=== PATIENT | male | born 1940 | race Caucasian/White ===

== ENCOUNTER 2016-12-30 12:56 | Emergency (ER) | payer MEDICARE, OTHER ==
[~2016-12-30] VITALS: Ht 170.2 cm; Wt 100.2 kg
[~2016-12-30 12:56] MED LIST: ALFU10TA PO; ASPI81TA2 PO; CHOL10003 PO; CYAN10005 PO; DIPH25CA58 PO; DOCU-27 PO; LISI-338 PO; METO25TA2 PO; PRAV40TA2 PO
--- NOTE | 2016-12-30 13:48 | ED.ADGEN ---
Past History Past Medical History: Constipation, Diverticulitis, Diabetes, High Cholesterol , Hypertension, IBS, Other Past Surgical History: Appendectomy, Tonsillectomy, Other Alcohol Use: Occasionally Drug Use: None Adult General HPI HPI Patient is a 76-year-old male presents complaining of intermittent mid abdominal pain and distention for the last day and half. Patient reports that he had constipation 3 days ago and was taking MiraLAX. Yesterday he did have good results and again this morning had normal bowel movements. However starting last night he notes that he was quite a bit distended and uncomfortable depending on his physician. Patient denies any fevers, chills, nausea, vomiting. But does report that he had decreased appetite. Belching does seem to help with his symptoms and he reports that despite passing minimal flatus he has had 2 normal bowel movements today. Review of Systems Review of Systems Constitutional: Denies fever or chills [] Eyes: Denies change in visual acuity, redness, or eye pain [] HENT: Denies nasal congestion or sore throat [] Respiratory: Denies cough or shortness of breath [] Cardiovascular: No additional information not addressed in HPI [] GI: Denies abdominal pain, nausea, vomiting, bloody stools or diarrhea [] : Denies dysuria or hematuria [] Musculoskeletal: Denies back pain or joint pain [] Integument: Denies rash or skin lesions [] Neurologic: Denies headache, focal weakness or sensory changes [] Endocrine: Denies polyuria or polydipsia [] Allergies Allergies Allergies Coded Allergies Type Severity Reaction Last Updated Verified simvastatin Allergy Severe cramps 11/09/15 Yes Physical Exam Physical Exam Constitutional: Well developed, well nourished, no acute distress, non-toxic appearance. [] HENT: Normocephalic, atraumatic, bilateral external ears normal, oropharynx moist, no oral exudates, nose normal. [] Eyes: PERRLA, EOMI, conjunctiva normal, no discharge. [] Neck: Normal range of motion, no tenderness, supple, no stridor. [] Cardiovascular:Heart rate regular rhythm, no murmur [] Lungs & Thorax: Bilateral breath sounds clear to auscultation [] Abdomen: Bowel sounds normal, soft, diffusely tender to palpation with distention but no peritoneal signs, no masses, no pulsatile masses. [] Skin: Warm, dry, no erythema, no rash. [] Back: No tenderness, no CVA tenderness. [] Extremities: No tenderness, no cyanosis, no clubbing, ROM intact, no edema. [] Neurologic: Alert and oriented X 3, normal motor function, normal sensory function, no focal deficits noted. [] Psychologic: Affect normal, judgement normal, mood normal. [] Current Patient Data Vital Signs Vital Signs Date Time Temp Pulse Resp B/P Pulse Ox O2 Delivery O2 Flow Rate FiO2 12/30/16 13:05 98.3 80 15 99 Room Air EKG EKG [] Radiology/Procedures Radiology/Procedures Indication: Pelvic pain, bloating. Symptoms since the . Symptoms progressing. Technique: Abdominal series with PA chest radiograph contains 4 images. Comparison is from November 10, 2015. Findings: Minimal basilar atelectasis or scarring is noted. There is no pleural effusion. Heart is not enlarged. There is atheromatous disease in the thoracic aorta. There is no free air. There is no dilated bowel loop or air-fluid level. There are calcified phleboliths in the pelvis. There are degenerative changes in the spine. Calculus projecting over the left renal shadow measures 3 mm. Impression: 1. Nonobstructive bowel gas pattern. 2. 3 mm calculus projecting over the left renal shadow, was present on prior. DICTATED AND SIGNED BY: FRANCIS ANN MD DATE: 12/30/16 1410 CC: LISA DENNIS MD; BERONICA HIGHTOWER MD ~ [] Course & Med Decision Making Course & Med Decision Making Pertinent Labs and Imaging studies reviewed. (See chart for details) Overall, the patient looks well. His x-ray is reassuring however he does still have a fair amount of stool present in his colon. Patient tells me that he has not had the same resolution of his constipation as he usually does following administration of MiraLAX. At this point he like to return home and try another dose of that. He will of course return emergency Department sooner if he develops any new or worsening symptoms. [] Final Impression Final Impression abdominal pain constipation[] Problems: Dragon Disclaimer Dragon Disclaimer This electronic medical record was generated, in whole or in part, using a voice recognition dictation system. LISA DENNIS MD Dec 30, 2016 13:48
--- NOTE | 2016-12-30 14:16 | RAD ---
Indication: Pelvic pain, bloating. Symptoms since the . Symptoms progressing. Technique: Abdominal series with PA chest radiograph contains 4 images. Comparison is from November 10, 2015. Findings: Minimal basilar atelectasis or scarring is noted. There is no pleural effusion. Heart is not enlarged. There is atheromatous disease in the thoracic aorta. There is no free air. There is no dilated bowel loop or air-fluid level. There are calcified phleboliths in the pelvis. There are degenerative changes in the spine. Calculus projecting over the left renal shadow measures 3 mm. Impression: 1. Nonobstructive bowel gas pattern. 2. 3 mm calculus projecting over the left renal shadow, was present on prior.
[2016-12-30 14:25] VITALS: BP 109/63
== END 2016-12-30 14:43 | disposition home or self-care (01) ==
LOC: ER 12:56
DX: K59.00 Constipation, unspecified (principal); R14.0 Abdominal distension (gaseous); I10 Essential (primary) hypertension; E78.00 Pure hypercholesterolemia, unspecified; E11.9 Type 2 diabetes mellitus without complications; K58.9 Irritable bowel syndrome, unspecified; Z88.8 Allergy status to other drugs, medicaments and biological substances
CPT/HCPCS: 74022; 99284

== ENCOUNTER 2017-01-01 03:14 | Inpatient (IN) | payer MEDICARE, OTHER ==
[~2017-01-01] VITALS: Ht 170.2 cm; Wt 101.3 kg
[2017-01-01] MEDS ORDERED: FENTANYL PF 100 MCG/2 ML VIAL. IV PRN (03:30)
--- NOTE | 2017-01-01 03:39 | PHYS DOC ---
General Chief Complaint: ABDOMINAL PAIN Stated Complaint: ABDOMINAL PAIN X 1 WK Time Seen by MD: 03:16 Source: patient, old records Exam Limitations: no limitations Problems: History of Present Illness Initial Comments Pt is 76/M to ED c/o abdominal pain. Pt states abdominal pain for at least one week. Pt was seen [facility] ED Thursday for similar sx, at that time reassuring workup pt was d/c home with miralax. Pt states he's only taken clear liquids since then, states he's had seven normal BMs feels there could be nothing left. States that his abdomen has grown distended and is painful primarily epigastric. Today with increased abdominal distension pt began belching and felt nauseous, pt concerned he may have obstruction recurrance. ED VS: 97.7, 95, 20, 156/88, 96% RA Timing/Duration: 1 week, getting worse Severity: severe Modifying Factors: worse with eating, worse with movement, improves with rest Associated Symptoms: nausea/vomiting, other Allergies: Coded Allergies: simvastatin (Verified Allergy, Severe, cramps, 11/09/15) muscle loss Past Medical History Medical History: other (constipation, diverticulitis, DM, HLP, HTN, IBS, small bowel obstruction) Surgical History: other (appendectomy, tonsillectomy, 5 abdominal hernia repairs mesh) Social History Smoker: non-smoker Alcohol: occasionally Drugs: none Review of Systems Constitutional: denies chills, denies fever Respiratory: denies cough, denies shortness of breath Cardiovascular: denies chest pain, denies palpitations Gastrointestinal: see HPI Genitourinary: denies dysuria, denies frequency, denies hematuria Musculoskeletal: denies back pain, denies joint swelling, denies neck pain Psychiatric/Neurological: denies headache, denies numbness, denies paresthesia Hematologic/Lymphatic: denies blood clots, denies easy bleeding, denies easy bruising Physical Exam General Appearance: WD/WN, no apparent distress Eyes: bilateral eye EOMI, bilateral eye PERRL, bilateral eye normal inspection Ear, Nose, Throat: hearing grossly normal, normal ENT inspection, normal pharynx Neck: non-tender, supple Respiratory: normal breath sounds, no respiratory distress Cardiovascular: normal peripheral pulses, regular rate, rhythm Gastrointestinal: soft (distended, generalized TTP with guarding no rebound/ mass, scars noted c/w history) Back: no CVA tenderness, no vertebral tenderness Extremities: non-tender, normal inspection 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 REASON: abdominal pain, h/o SBO PROCEDURE: ABD PELV W/ IV CONTRAST ONLY CT abdomen pelvis with contrast Indication: Abdominal pain and flank pain and bloating. Axial imaging through the abdomen and pelvis was performed after the administration of intravenous contrast. PQRS STATEMENT One or more of the following individualized dose reduction techniques were utilized for this study: 1.Automated exposure control. 2.Adjustment of the mA and/orkVaccording to patient size. 3.Use of iterative reconstruction technique. The patient's prior images are not available for comparison. The lung bases are clear. No focal liver mass is detected. The gallbladder is unremarkable. The pancreas and spleen are unremarkable. No adrenal mass is detected. There is a nonobstructing calculus in the mid left kidney. No ureteral calculi or hydronephrosis is seen. Aorta is calcified but not aneurysmal. There are moderately dilated and fluid-filled small bowel loops in the central and left lower abdomen. There appears to be a focal transition zone with normal caliber small bowel loops present and findings are consistent with small bowel obstruction. No bowel wall thickening or pneumatosis is seen. There is no free air. No free fluid is identified. The colon is decompressed. The bladder is unremarkable. Impression: Moderately dilated and fluid-filled small bowel loops in the central and left abdomen with focal transition zone. Findings are consistent with a small bowel obstruction. No free air or abscess formation is identified. Electronically signed by: Remi Peng MD (Jan 01, 2017 04:52:48) DICTATED AND SIGNED BY: REMI PENG MD DATE: 01/01/17 3282 CC: BERONICA HIGHTOWER MD; SIL AYALA DO ~ [id number]: I discussed pt with Dr Hightower who agrees with hospital admission. He accepts medsurg/obs admission for bowel rest, IV fluids, pain control, and surgical consult. Pt is agreeable. Departure Time of Disposition: 05:04 Disposition: 09 ADMITTED INPATIENT Diagnosis: Small Bowel Obstruction Condition: STABLE Additional Instructions: Dr Hightower accepts medsurg/obs admission. SIL AYALA DO Jan 01, 2017 03:39
--- NOTE | 2017-01-01 03:44 | EKG ---
[address] [address] Test Date: 2017-01-01 Test Time: 03:44:10 Pat Name: AALIYAH AMBROCIO Department: Room: Gender: M Babbitter: : 1940 Requested By: SIL AYALA Order Number: [id number] Reading MD: Measurements Intervals [place] Rate: 81 P: 34 OK: 212 QRS: -7 QRSD: 84 T: 12 QT: 352 QTc: 409 Interpretive Statements SINUS RHYTHM LEFTWARD AXIS OTHERWISE NORMAL ECG RI6.01 Unconfirmed report Compared to ECG 07/17/2012 04:11:20 No significant changes
[2017-01-01] MEDS ORDERED: CONTRAST GIVEN MC PRN (03:45)
[2017-01-01] MEDS ORDERED: LIDO:MAALOX 1:1 20 ML SINGLE DOSE PO ONE (04:00)
[2017-01-01] MEDS ORDERED: FAMOTIDINE 20 MG/2 ML VIAL IVP ONE (04:00)
[2017-01-01] MEDS ORDERED: ONDANSETRON PF 4 MG/2 ML VIAL. IV ONE (04:00)
[2017-01-01] MEDS ORDERED: IV NORMAL SALINE 1,000ML 1,000 ML IV SCH (04:00)
[2017-01-01] MEDS ORDERED: IOHEXOL 300 MG/ML 75 ML VIAL. IV ONE (04:00)
[2017-01-01 04:01] LABS: BASO % 1 % (0-3); EOS # 0.1 x10^3/uL (0.0-0.7); EOS % 1 % (0-3); HEMATOCRIT 45.2 % (39.0-53.0); HEMOGLOBIN 15.6 g/dL (13.0-17.5); LYMPH # 1.3 x10^3/uL (1.0-4.8); LYMPH % 14 % (24-48); MEAN CORPUSCULAR HEMOGLOBIN 34 pg (25-35); MEAN CORPUSCULAR HGB CONC 35 g/dL (31-37); MEAN CORPUSCULAR VOLUME 99 fL (79-100); MONO # 0.9 x10^3/uL (0.0-1.1); MONO % 11 % (0-9); NEUT # 6.4 x10^3uL (1.8-7.7); NEUT % 74 % (31-73); PLATELET COUNT 267 x10^3/uL (140-400); RED BLOOD COUNT 4.59 x10^6/uL (4.30-5.70); WHITE BLOOD COUNT 8.7 x10^3/uL (4.0-11.0)
[2017-01-01 04:22] LABS: ALBUMIN 3.5 g/dL (3.4-5.0); CALCIUM 10.1 mg/dL (8.5-10.1); GFR 72.6; TOTAL BILIRUBIN 0.7 mg/dL (0.2-1.0); TOTAL PROTEIN 6.9 g/dL (6.4-8.2)
--- NOTE | 2017-01-01 04:55 | RAD ---
CT abdomen pelvis with contrast Indication: Abdominal pain and flank pain and bloating. Axial imaging through the abdomen and pelvis was performed after the administration of intravenous contrast. PQRS STATEMENT One or more of the following individualized dose reduction techniques were utilized for this study: 1.Automated exposure control. 2.Adjustment of the mA and/orkVaccording to patient size. 3.Use of iterative reconstruction technique. The patient's prior images are not available for comparison. The lung bases are clear. No focal liver mass is detected. The gallbladder is unremarkable. The pancreas and spleen are unremarkable. No adrenal mass is detected. There is a nonobstructing calculus in the mid left kidney. No ureteral calculi or hydronephrosis is seen. Aorta is calcified but not aneurysmal. There are moderately dilated and fluid-filled small bowel loops in the central and left lower abdomen. There appears to be a focal transition zone with normal caliber small bowel loops present and findings are consistent with small bowel obstruction. No bowel wall thickening or pneumatosis is seen. There is no free air. No free fluid is identified. The colon is decompressed. The bladder is unremarkable. Impression: Moderately dilated and fluid-filled small bowel loops in the central and left abdomen with focal transition zone. Findings are consistent with a small bowel obstruction. No free air or abscess formation is identified. Electronically signed by: Remi Peng MD (Jan 01, 2017 04:52:48)
[2017-01-01] MEDS ORDERED: ACETAMINOPHEN 325 MG TABLET PO PRN (05:15)
[2017-01-01] MEDS ORDERED: ONDANSETRON PF 4 MG/2 ML VIAL. IV PRN (05:15)
[2017-01-01] MEDS ORDERED: MORPHINE SULFATE 4 MG/ML DISP.SYRIN. IV PRN (05:15)
[2017-01-01 06:05] VITALS: BP 145/54
[2017-01-01] MEDS: IV NORMAL SALINE 1,000ML 1,000 ML IV SCH ×3 (06:08→22:10)
[2017-01-01 06:13] LABS: BARBITURATES NEG (NEG); BENZODIAZEPINES NEG (NEG); CANNABINOIDS NEG (NEG); COCAINE NEG (NEG); METHADONE NEG (NEG); OPIATES NEG (NEG); PHENCYCLIDINE NEG (NEG)
[2017-01-01 06:16] LABS: BACTERIA,URINE 0 /HPF (0-FEW); BILIRUBIN,URINE NEG (NEG); CLARITY,URINE CLEAR; COLOR,URINE YELLOW; GLUCOSE,URINE NEG (NEG); NITRITE,URINE NEG (NEG); RBC,URINE 0 /HPF (0-2); SQUAMOUS EPITHELIAL CELL,UR OCC /LPF; UROBILINOGEN,URINE 0.2 mg/dL (0.2 mg/dL); WBC,URINE 0 /HPF (0-4)
[2017-01-01] MEDS ORDERED: LISI10TA2 PO (06:20)
[2017-01-01] MEDS ORDERED: LISI-338 PO (06:21)
[2017-01-01 06:22] LABS: AMPHETAMINE/METHAMPHETAMINE NEG (NEG)
[2017-01-01 07:46] VITALS: BP 116/79
[2017-01-01] MEDS ORDERED: PNEUMOC CONJ VACC 13-VALENT 0.5 ML DISP.SYRIN. VAX IM ONE (09:00)
--- NOTE | 2017-01-01 09:00 | ACF ---
Admission Criteria Forms INTESTINAL OBSTRUCTION Clinical Indications for Admission to Inpatient Care (Place 'X' for any and all applicable criteria): Admission is indicated for ANY ONE of the following (1)(2)(3)(4)(5): [X]I. Partial bowel obstruction [ ]II. Complete bowel obstruction Extended stay beyond goal length of stay may be needed for(1)(4)(12(: [ ]a) Identified etiology (eg, hernia, volvulus, cancer with obstruction) requiring intervention [ ]b) Gallstone ileus [ ]c) Surgical intervention [ ]d) Acute comorbid illness (eg, electrolyte imbalance, hypovolemia, renal failure) The original [employer] content created by [employer] has been revised. The portions of the content which have been revised are identified through the use of italic text or in bold, and [email or web address] has neither reviewed nor approved the modified material. All other unmodified content is copyright [employer]. Please see references footnoted in the original [email or web address] edition 2016 Admission Criteria Met?: Yes BRITTANY OWENS Jan 01, 2017 09:00
[2017-01-01 10:54] VITALS: BP 129/78
[2017-01-01 14:22] VITALS: BP 122/79
[2017-01-01] MEDS ORDERED: GLYCERIN ADULT 1 SUPP.RECT. PR PRN (16:30)
[2017-01-01 19:35] VITALS: BP 129/71
[2017-01-01] MEDS ORDERED: GLYCERIN ADULT 1 SUPP.RECT. PR ONE (20:00)
[2017-01-01 23:04] VITALS: BP 121/72
--- NOTE | 2017-01-02 01:55 | HP ---
ADMIT DATE: 01/01/2017 HISTORY OF PRESENT ILLNESS: A 76-year-old male came in with abdominal pain. The patient was in his usual state of health. During last ____ days, he has become increasingly complaining of abdominal pain. Last week or so, the patient ____ has been trying to take some MiraLax and other medications for his bowels. Otherwise, the patient's abdomen pain increased, slightly distended, and as a result of this came in to the Emergency Room. Apparently, the patient's x-rays demonstrated that he has early small-bowel obstruction. As a result of this, the patient was admitted to the hospital for further evaluation and advance treatment. PAST MEDICAL HISTORY: Diverticulitis, constipation, diabetes, hypertension, irritable bowel syndrome, small-bowel obstruction. PAST SURGICAL HISTORY: Multiple surgeries. He has had appendectomy with rupture of his appendix in the past, tonsillectomy, five abdominal hernia repairs with mesh. ALLERGIES: The patient has allergies ____ sensitivity to simvastatin. FAMILY HISTORY: Unremarkable. SOCIAL HISTORY: The patient denies smoking, alcohol, or drug use. REVIEW OF SYSTEMS: ____ oriented. However, he denies chest pain or shortness of breath. Denies melena, hematochezia, or hematemesis. Does have abdominal pain and distention of his abdomen and diffuse pain throughout his abdominal wall area. MEDICATIONS: The patient is on Uroxatral, aspirin 81, vitamin D, B12, Benadryl, lisinopril 5 mg a day, metoprolol, pravastatin 40. PHYSICAL EXAMINATION: GENERAL: Pleasant white male, in moderate amount of pain. VITAL SIGNS: Blood pressure 120/70, respiratory rate ____ NECK: Supple without JVD, carotid bruits. No thyromegaly. LUNGS: Diminished throughout, but clear. CARDIOVASCULAR: Regular sinus rhythm. S1, S2 without extra heart sounds. ABDOMEN: Protuberant, firm throughout, diffuse tenderness. No rebound or guarding. Positive bowel sounds. No hepatosplenomegaly was noted. EXTREMITIES: No clubbing, cyanosis, or edema. NEUROLOGIC: The patient is alert and oriented x 3. The patient's CT scan shows ____. LABORATORY DATA: The patient's hemoglobin 15. The patient's sugars were basically stable. Electrolytes were basically unremarkable as well as his urine ____. IMPRESSION: Small-bowel obstruction, previous abdominal surgeries. Consult with General Surgery who were asked to make further evaluation on him as indicated. BERONICA HIGHTOWER MD DR: ROHNDA/ayden JOB#: [id number] / [id number]
[2017-01-02 05:58] VITALS: BP 144/92
[2017-01-02] MEDS: IV NORMAL SALINE 1,000ML 1,000 ML IV SCH ×2 (06:21→15:50)
[2017-01-02 06:27] LABS: BASO % 1 % (0-3); EOS # 0.1 x10^3/uL (0.0-0.7); EOS % 2 % (0-3); HEMATOCRIT 43.4 % (39.0-53.0); HEMOGLOBIN 14.8 g/dL (13.0-17.5); LYMPH # 1.8 x10^3/uL (1.0-4.8); LYMPH % 36 % (24-48); MEAN CORPUSCULAR HEMOGLOBIN 34 pg (25-35); MEAN CORPUSCULAR HGB CONC 34 g/dL (31-37); MEAN CORPUSCULAR VOLUME 99 fL (79-100); MONO # 0.7 x10^3/uL (0.0-1.1); MONO % 13 % (0-9); NEUT # 2.5 x10^3uL (1.8-7.7); NEUT % 49 % (31-73); PLATELET COUNT 285 x10^3/uL (140-400); RED BLOOD COUNT 4.37 x10^6/uL (4.30-5.70); WHITE BLOOD COUNT 5.2 x10^3/uL (4.0-11.0)
[2017-01-02 06:31] LABS: CALCIUM 9.2 mg/dL (8.5-10.1); CREATININE 0.9 mg/dL (0.7-1.3); POTASSIUM 4.3 mmol/L (3.5-5.1)
[2017-01-02] MEDS: ASPIRIN 81 MG TAB.CHEW PO SCH (08:15)
[2017-01-02] MEDS: LISINOPRIL 5 MG TABLET. PO SCH ×2 (08:15→19:58)
[2017-01-02] MEDS: METOPROLOL SUCC 24HR ER 25 MG TAB.ER.24H. PO SCH (08:15)
--- NOTE | 2017-01-02 08:58 | RAD ---
Abdomen series with chest, 3 views, 01/02/2017: History: Small bowel obstruction, abdominal tenderness There are several air-fluid levels in the left upper quadrant within mildly prominent gas-filled small bowel loops. There is gas in nondilated loops of distal small bowel and colon. These findings were evident on yesterday's CT study but were not present on the abdomen series from 12/30/2016. No free air is present in the abdomen. A small radiopacity is again noted overlying the left kidney compatible with an intrarenal calculus. There is no evidence of organomegaly. The heart size and pulmonary vascularity are normal. There is minimal linear scarring or atelectasis in the lung bases. No pulmonary consolidation is seen. There is no evidence of pleural fluid. IMPRESSION: 1. Air-fluid levels within minimally prominent small bowel loops in the left upper quadrant, similar to that seen on yesterday's CT exam. The findings are compatible with ongoing partial small bowel obstruction versus a localized ileus. 2. Small left intrarenal calculus
[2017-01-02] MEDS ORDERED: BISACODYL 10 MG SUPP.RECT PR ONE (10:30)
[2017-01-02 10:32] VITALS: BP 127/81
--- NOTE | 2017-01-02 14:36 | PDOC2 ---
KATLYN KING EDITOR TRADE JOURNAL 01/02/17 1435: CONSULT Date of Admission DATE: 01/02/17 TIME: 14:30 Reason for Consult: SBO Referring Physician: ER Chief Complaint abdominal pain Source: Chart review, Patient Problem List Abdominal pain and constipation since Thursday, few stools at home, however the pain continued to be severe--did have some loose stools. Became increasingly distended, came to ER. Has only had liquids since Thursday. Does report a history IBS and constipation/diarrhea -frequently takes laxatives He did have a bowel obstruction in the that required surgery for adhesions pain is now minimal, no n/v, having some stools, bloating resolved Cardiovascular: HTN, hyperipidemia GI: Diverticulosis, GERD Endocrine: Diabetes Past Surgical History: Appendectomy, Hernia Repair, Other (lysis of adhesions, sbo ) Family History: Other (noncontributory to current illness ) Smoke: Quit ALCOHOL: other (3 drinks a week, bourbon) Drugs: None Lives: with Family Current Medications Current Medications Multi-Ingredient Mouthwash/Gargle (Gi Cocktail) 20 ml 1X ONCE PO Last administered on 01/01/17 03:58; Start 01/01/17 at 04:00; Stop 01/01/17 at 04:01 ; Status DC Fentanyl Citrate 25 mcg 25 mcg PRN Q15MIN PRN IV PAIN GREATER THAN 3/10 Last administered on 01/01/17 03:58; Start 01/01/17 at 03:30; Stop 01/02/17 at 03:29 ; Status DC Sodium Chloride (Iv Sodium Chloride 0.9% 1,000ml) 1,000 ml @ 1,000 mls/hr Q1H IV Last administered on 01/01/17 03:57; Start 01/01/17 at 04:00; Stop at 04:59; Status DC Ondansetron HCl (Zofran) 4 mg 1X ONCE IV Last administered on 01/01/17 03:57 ; Start 01/01/17 at 04:00; Stop 01/01/17 at 04:01; Status DC Famotidine (Pepcid) 20 mg 1X ONCE IVP Last administered on 01/01/17 03:58; Start 01/01/17 at 04:00; Stop 01/01/17 at 04:01; Status DC Iohexol (Omnipaque 300 Mg/ml) 75 ml 1X ONCE IV Last administered on 01/01/17 04:32; Start 01/01/17 at 04:00; Stop 01/01/17 at 04:01; Status DC Info (Do NOT chart on this entry -- for MONITORING) 1 each PRN DAILY PRN MC SEE COMMENTS; Start 01/01/17 at 03:45; Stop 01/03/17 at 03:44 Ondansetron HCl (Zofran) 4 mg PRN Q4HRS PRN IV NAUSEA/VOMITING; Start 01/01/17 at 05:15; Stop 01/02/17 at 05:15; Status DC Morphine Sulfate (Morphine 4mg Syringe) 4 mg PRN Q2HR PRN IV SEVERE PAIN Last administered on 01/01/17 06:38; Start 01/01/17 at 05:15; Stop 01/02/17 at 05:15 ; Status DC Acetaminophen 650 mg 650 mg PRN Q4HRS PRN PO FEVER; Start 01/01/17 at 05:15; Stop 01/02/17 at 05:15; Status DC Sodium Chloride (Iv Sodium Chloride 0.9% 1,000ml) 1,000 ml @ 120 mls/hr Q8H20M IV Last administered on 01/02/17 06:21; Start 01/01/17 at 06:00 Pneumoccal 13-Valent Conj Vacc (Prevnar 13) 0.5 ml ONCE ONCE VAX IM ; Start at 09:00; Stop 01/01/17 at 09:01; Status DC Glycerin (Sani-Supp Adult) 1 supp PRN DAILY PRN IN CONSTIPATION; Start at 16:30 Glycerin (Sani-Supp Adult) 1 supp 1X ONCE IN Last administered on 01/01/17 19 :48; Start 01/01/17 at 20:00; Stop 01/01/17 at 20:01; Status DC Aspirin (Children'S Aspirin) 81 mg DAILY PO Last administered on 01/02/17 08: 15; Start 01/02/17 at 09:00 Lisinopril (Prinivil) 5 mg BID PO Last administered on 01/02/17 08:15; Start 01/02/17 at 09:00 Metoprolol Succinate (Toprol Xl) 25 mg DAILY PO Last administered on 01/02/17t 08:15; Start 01/02/17 at 09:00 Tamsulosin HCl (Flomax) 0.4 mg QHS PO ; Start 01/02/17 at 21:00 Bisacodyl (Dulcolax Supp) 10 mg 1X ONCE IN Last administered on 01/02/17t 10: 30; Start 01/02/17 at 10:30; Stop 01/02/17 at 10:31; Status DC Active Scripts Active Reported Lisinopril 5 Mg Tablet 5 Mg PO BID Benadryl (Diphenhydramine Hcl) 25 Mg Capsule 25 Mg PO PRN Q6HRS PRN Pravastatin Sodium 40 Mg Tablet Tab PO QHS LAST DOSE GIVEN: DATE: TIME: NEXT DOSE DUE: DATE: TIME: Aspirin 81 Mg Tab.chew 81 Mg PO DAILY LAST DOSE GIVEN: DATE: TIME: NEXT DOSE DUE: DATE: TIME: Uroxatral (Alfuzosin HCl) 10 Mg Tab.er.24h 10 Mg PO HS LAST DOSE GIVEN: DATE: TIME: NEXT DOSE DUE: DATE: TIME: Vitamin D3 (Cholecalciferol (Vitamin D3)) 1,000 Unit Tablet 2,000 Unit PO DAILY LAST DOSE GIVEN: DATE: TIME: NEXT DOSE DUE: DATE: TIME: Vitamin B-12 (Cyanocobalamin (Vitamin B-12)) 1,000 Mcg Tablet 1 Tab PO DAILY LAST DOSE GIVEN: DATE: TIME: NEXT DOSE DUE: DATE: TIME: Toprol Xl (Metoprolol Succinate) 25 Mg Tab.er.24h 1 Tab PO DAILY LAST DOSE GIVEN: DATE: TIME: NEXT DOSE DUE: DATE: TIME: Allergies: Coded Allergies: simvastatin (Verified Allergy, Severe, cramps, 11/09/15) muscle loss General: No: Chills, Other (fevers) PSYCHOLOGICAL ROS: No: Anxiety, Depression Eyes: No: Blurry vision, Double vision HEENT: No: Heacaches, Sore Throat Hematological and Lymphatic: No: Bleeding Problems, Blood Clots Respiratory: No: Cough, Shortness of breath Cardiovascular: No: Chest Pain, Palpitations Gastrointestinal: YES: Other (see hpi) Genitourinary: No: Dysuria, Henaturia Musculoskeletal: No: Joint Pain, Muscle Pain Neurological: No: Confusion, Numbness/Tingling Skin: No: Pruritus, Rash General: Alert, Oriented X3, Cooperative, No acute distress HEENT: PERRLA, Mucous membr. moist/pink Lungs: Clear to auscultation, Normal air movement Heart: Regular rate, Normal S1, Normal S2, No murmurs Abdomen: Soft, No tenderness, Other (mild distention) Extremities: No clubbing, No cyanosis Skin: No rashes, No breakdown, No significant lesion Neuro: Normal gait, Normal speech, Sensation intact Psych/Mental Status: Mental status NL VITALS Vital Signs Date Time Temp Pulse Resp B/P Pulse Ox O2 Delivery O2 Flow Rate FiO2 01/02/17 10:32 98.2 70 20 127/81 96 Room Air Labs Laboratory Tests Test 01/01/17 03:48 01/01/17 05:20 01/01/17 07:29 01/01/17 11:25 White Blood Count 8.7x10^3/uL (4.0-11.0) Red Blood Count 4.59x10^6/uL (4.30-5.70) Hemoglobin 15.6g/dL (13.0-17.5) Hematocrit 45.2% (39.0-53.0) Mean Corpuscular Volume 99fL (79-100) Mean Corpuscular Hemoglobin 34pg (25-35) Mean Corpuscular Hemoglobin Concent 35g/dL (31-37) Red Cell Distribution Width 13.0% (11.5-14.5) Platelet Count 267x10^3/uL (140-400) Neutrophils (%) (Auto) 74% (31-73) Lymphocytes (%) (Auto) 14% (24-48) Monocytes (%) (Auto) 11% (0-9) Eosinophils (%) (Auto) 1% (0-3) Basophils (%) (Auto) 1% (0-3) Neutrophils # (Auto) 6.4x10^3uL (1.8-7.7) Lymphocytes # (Auto) 1.3x10^3/uL (1.0-4.8) Monocytes # (Auto) 0.9x10^3/uL (0.0-1.1) Eosinophils # (Auto) 0.1x10^3/uL (0.0-0.7) Basophils # (Auto) 0.0x10^3/uL (0.0-0.2) Sodium Level 136mmol/L (136-145) Potassium Level 4.0mmol/L (3.5-5.1) Chloride Level 99mmol/L (98-107) Carbon Dioxide Level 29mmol/L (21-32) Anion Gap 8 (6-14) Blood Urea Nitrogen 17mg/dL (8-26) Creatinine 1.0mg/dL (0.7-1.3) Estimated GFR (Cockcroft-Gault) 72.6 BUN/Creatinine Ratio 17 (6-20) Glucose Level 154mg/dL (70-99) Calcium Level 10.1mg/dL (8.5-10.1) Total Bilirubin 0.7mg/dL (0.2-1.0) Aspartate Amino Transf (AST/SGOT) 18U/L (15-37) Alanine Aminotransferase (ALT/SGPT) 25U/L (16-63) Alkaline Phosphatase 52U/L (46-116) Creatine Kinase 74U/L (39-308) Troponin I Quantitative < 0.017ng/mL (0-0.055) Total Protein 6.9g/dL (6.4-8.2) Albumin 3.5g/dL (3.4-5.0) Albumin/Globulin Ratio 1.0 (1.0-1.7) Lipase 116U/L (73-393) Ethyl Alcohol Level < 10mg/dL (0-10) Urine Collection Type Unknown Urine Color Yellow Urine Clarity Clear Urine pH 7.0 Urine Specific [place] 1.010 Urine Protein Neg (NEG-TRACE) Urine Glucose (UA) Negmg/dL (NEG) Urine Ketones (Stick) Tracemg/dL (NEG) Urine Blood Trace (NEG) Urine Nitrite Neg (NEG) Urine Bilirubin Neg (NEG) Urine Urobilinogen Dipstick 0.2mg/dL (0.2 mg/dL) Urine Leukocyte Esterase Neg (NEG) Urine RBC 0/HPF (0-2) Urine WBC 0/HPF (0-4) Urine Squamous Epithelial Cells Occ/LPF Urine Bacteria 0/HPF (0-FEW) Urine Opiates Screen Neg (NEG) Urine Methadone Screen Neg (NEG) Urine Barbiturates Neg (NEG) Urine Phencyclidine Screen Neg (NEG) Urine Amphetamine/Methamphetamine Neg (NEG) Urine Benzodiazepines Screen Neg (NEG) Urine Cocaine Screen Neg (NEG) Urine Cannabinoids Screen Neg (NEG) Urine Ethyl Alcohol Neg (NEG) Glucose (Fingerstick) 110mg/dL (70-99) 91mg/dL (70-99) Test 01/01/17 16:10 01/01/17 20:10 01/02/17 05:48 01/02/17 07:27 Glucose (Fingerstick) 81mg/dL (70-99) 81mg/dL (70-99) 101mg/dL (70-99) White Blood Count 5.2x10^3/uL (4.0-11.0) Red Blood Count 4.37x10^6/uL (4.30-5.70) Hemoglobin 14.8g/dL (13.0-17.5) Hematocrit 43.4% (39.0-53.0) Mean Corpuscular Volume 99fL (79-100) Mean Corpuscular Hemoglobin 34pg (25-35) Mean Corpuscular Hemoglobin Concent 34g/dL (31-37) Red Cell Distribution Width 13.0% (11.5-14.5) Platelet Count 285x10^3/uL (140-400) Neutrophils (%) (Auto) 49% (31-73) Lymphocytes (%) (Auto) 36% (24-48) Monocytes (%) (Auto) 13% (0-9) Eosinophils (%) (Auto) 2% (0-3) Basophils (%) (Auto) 1% (0-3) Neutrophils # (Auto) 2.5x10^3uL (1.8-7.7) Lymphocytes # (Auto) 1.8x10^3/uL (1.0-4.8) Monocytes # (Auto) 0.7x10^3/uL (0.0-1.1) Eosinophils # (Auto) 0.1x10^3/uL (0.0-0.7) Basophils # (Auto) 0.0x10^3/uL (0.0-0.2) Sodium Level 140mmol/L (136-145) Potassium Level 4.3mmol/L (3.5-5.1) Chloride Level 105mmol/L (98-107) Carbon Dioxide Level 27mmol/L (21-32) Anion Gap 8 (6-14) Blood Urea Nitrogen 13mg/dL (8-26) Creatinine 0.9mg/dL (0.7-1.3) Estimated GFR (Cockcroft-Gault) 82.0 Glucose Level 95mg/dL (70-99) Calcium Level 9.2mg/dL (8.5-10.1) Test 01/02/17 11:29 Glucose (Fingerstick) 89mg/dL (70-99) Assessment/Plan sbo vs ileus, constipation hx of several abdominal surgeries IBS HTN obesity clears today repeat abd films in AM Problems: KONRAD GRAHAM MD 01/03/17 1224: CONSULT Allergies: Coded Allergies: simvastatin (Verified Allergy, Severe, cramps, 11/09/15) muscle loss Assessment/Plan Pt seen, interviewed and examined Thanks for consult Problems: KATLYN KING APRN Jan 02, 2017 14:35 KONRAD GRAHAM MD Jan 03, 2017 12:24
[2017-01-02 15:38] VITALS: BP 145/87
[2017-01-02 19:14] VITALS: BP 134/81
[2017-01-02] MEDS ORDERED: TAMSULOSIN 0.4 MG CAP.ER.24H. PO SCH (21:00)
[2017-01-03] MEDS: IV NORMAL SALINE 1,000ML 1,000 ML IV SCH ×2 (00:07→08:21)
[2017-01-03 01:00] VITALS: BP 112/62
[2017-01-03 05:22] VITALS: BP 148/83
[2017-01-03 06:06] LABS: BASO % 1 % (0-3); CALCIUM 8.6 mg/dL (8.5-10.1); EOS # 0.1 x10^3/uL (0.0-0.7); EOS % 2 % (0-3); GFR 72.6; HEMATOCRIT 42.2 % (39.0-53.0); HEMOGLOBIN 14.6 g/dL (13.0-17.5); LYMPH # 1.7 x10^3/uL (1.0-4.8); LYMPH % 29 % (24-48); MEAN CORPUSCULAR HEMOGLOBIN 34 pg (25-35); MEAN CORPUSCULAR HGB CONC 35 g/dL (31-37); MEAN CORPUSCULAR VOLUME 98 fL (79-100); MONO # 0.7 x10^3/uL (0.0-1.1); MONO % 11 % (0-9); NEUT # 3.5 x10^3uL (1.8-7.7); NEUT % 58 % (31-73); PLATELET COUNT 290 x10^3/uL (140-400); POTASSIUM 4.3 mmol/L (3.5-5.1); RED BLOOD COUNT 4.29 x10^6/uL (4.30-5.70); RED CELL DISTRIBUTION WIDTH 12.6 % (11.5-14.5)
[2017-01-03] MEDS: METOPROLOL SUCC 24HR ER 25 MG TAB.ER.24H. PO SCH (08:21)
[2017-01-03] MEDS: LISINOPRIL 5 MG TABLET. PO SCH (08:21)
[2017-01-03] MEDS: ASPIRIN 81 MG TAB.CHEW PO SCH (08:21)
--- NOTE | 2017-01-03 09:28 | RAD ---
Indication: Abdominal pain for 4 days. Bowel obstruction. Technique: Abdominal series with PA chest radiograph was obtained. Comparison is from one day earlier. Findings: The lungs remain relatively clear. The heart is not enlarged. There is atheromatous disease in the thoracic aorta. There are degenerative changes in the spine. There is no free air. Dilated small bowel loops in the left upper quadrant on prior study appear improved. There is gas within the colon. There is no air-fluid level on the upright film. Small calculus projecting over the left renal shadow is stable. Impression: Improved bowel gas pattern. Prominent small bowel loops in the left upper quadrant on prior study no longer are visualized.
[2017-01-03 11:29] VITALS: BP 123/67
--- NOTE | 2017-01-03 12:24 | PDOC ---
SURGICAL PROGRESS NOTE Subjective Mr Portillo is feeling better. Up in chair having clear liquids. Asking for lettuce and refried beans. and daughter at bedside Vital Signs Vital Signs Date Time Temp Pulse Resp B/P Pulse Ox O2 Delivery O2 Flow Rate FiO2 01/03/17 11:29 97.7 63 18 123/67 96 Room Air I&O Intake and Output 01/03/17 07:00 Intake Total 4108.23 ml Output Total 2100 ml Balance 2008.23 ml Intake Oral 480 ml IV Total 3628.23 ml Output Urine Total 2100 ml # Bowel Movements 1 PATIENT HAS A MAHARAJ: No General: Alert, Oriented X3, Cooperative, No acute distress Abdomen: Other (obese, soft, non TTP) Labs Laboratory Tests Test 01/01/17 16:10 01/01/17 20:10 01/02/17 05:48 01/02/17 07:27 Glucose (Fingerstick) 81mg/dL (70-99) 81mg/dL (70-99) 101mg/dL (70-99) White Blood Count 5.2x10^3/uL (4.0-11.0) Red Blood Count 4.37x10^6/uL (4.30-5.70) Hemoglobin 14.8g/dL (13.0-17.5) Hematocrit 43.4% (39.0-53.0) Mean Corpuscular Volume 99fL (79-100) Mean Corpuscular Hemoglobin 34pg (25-35) Mean Corpuscular Hemoglobin Concent 34g/dL (31-37) Red Cell Distribution Width 13.0% (11.5-14.5) Platelet Count 285x10^3/uL (140-400) Neutrophils (%) (Auto) 49% (31-73) Lymphocytes (%) (Auto) 36% (24-48) Monocytes (%) (Auto) 13% (0-9) Eosinophils (%) (Auto) 2% (0-3) Basophils (%) (Auto) 1% (0-3) Neutrophils # (Auto) 2.5x10^3uL (1.8-7.7) Lymphocytes # (Auto) 1.8x10^3/uL (1.0-4.8) Monocytes # (Auto) 0.7x10^3/uL (0.0-1.1) Eosinophils # (Auto) 0.1x10^3/uL (0.0-0.7) Basophils # (Auto) 0.0x10^3/uL (0.0-0.2) Sodium Level 140mmol/L (136-145) Potassium Level 4.3mmol/L (3.5-5.1) Chloride Level 105mmol/L (98-107) Carbon Dioxide Level 27mmol/L (21-32) Anion Gap 8 (6-14) Blood Urea Nitrogen 13mg/dL (8-26) Creatinine 0.9mg/dL (0.7-1.3) Estimated GFR (Cockcroft-Gault) 82.0 Glucose Level 95mg/dL (70-99) Calcium Level 9.2mg/dL (8.5-10.1) Test 01/02/17 11:29 01/02/17 16:50 01/03/17 05:45 01/03/17 07:20 Glucose (Fingerstick) 89mg/dL (70-99) 82mg/dL (70-99) 99mg/dL (70-99) White Blood Count 6.0x10^3/uL (4.0-11.0) Red Blood Count 4.29x10^6/uL (4.30-5.70) Hemoglobin 14.6g/dL (13.0-17.5) Hematocrit 42.2% (39.0-53.0) Mean Corpuscular Volume 98fL (79-100) Mean Corpuscular Hemoglobin 34pg (25-35) Mean Corpuscular Hemoglobin Concent 35g/dL (31-37) Red Cell Distribution Width 12.6% (11.5-14.5) Platelet Count 290x10^3/uL (140-400) Neutrophils (%) (Auto) 58% (31-73) Lymphocytes (%) (Auto) 29% (24-48) Monocytes (%) (Auto) 11% (0-9) Eosinophils (%) (Auto) 2% (0-3) Basophils (%) (Auto) 1% (0-3) Neutrophils # (Auto) 3.5x10^3uL (1.8-7.7) Lymphocytes # (Auto) 1.7x10^3/uL (1.0-4.8) Monocytes # (Auto) 0.7x10^3/uL (0.0-1.1) Eosinophils # (Auto) 0.1x10^3/uL (0.0-0.7) Basophils # (Auto) 0.0x10^3/uL (0.0-0.2) Sodium Level 139mmol/L (136-145) Potassium Level 4.3mmol/L (3.5-5.1) Chloride Level 105mmol/L (98-107) Carbon Dioxide Level 28mmol/L (21-32) Anion Gap 6 (6-14) Blood Urea Nitrogen 10mg/dL (8-26) Creatinine 1.0mg/dL (0.7-1.3) Estimated GFR (Cockcroft-Gault) 72.6 Glucose Level 98mg/dL (70-99) Calcium Level 8.6mg/dL (8.5-10.1) Test 01/03/17 11:58 Glucose (Fingerstick) 114mg/dL (70-99) I have reviewed the following admission CT and plain films from this morning reviewed Assessment/Plan pSBO vs ileus, improving gradually advance ARIADNE no acute surgical recs will follow as needed spent time explaining plan to Mr Portillo and his family KONRAD GRAHAM MD Jan 03, 2017 12:23
--- NOTE | 2017-01-03 21:50 | DS ---
DATE OF DISCHARGE: 01/03/2017 HOSPITAL COURSE: A 76-year-old gentleman came in with abdominal pain through the Emergency Room, found to have a small-bowel obstruction. The patient was placed on bowel rest as well as given several laxatives and the like he was seen by Surgery, but they did not think surgery was entertainable. The patient had had previous multiple surgeries on his abdomen and consequently had shown a small-bowel obstruction, probably from adhesions. The patient's returned x-rays demonstrated marked improvement of the situation and little by little, he improved overall. He was discharged home for followup as an outpatient. His labs were basically of any significant problem as far as they are concerned. In anyway, the patient was discharged home, taking mineral oil and laxatives as an outpatient. IMPRESSION: Small-bowel obstruction, probably secondary to adhesions, obstipation, morbid obesity, hyperglycemia. DISCHARGE INSTRUCTIONS: See MRAD. Decreased activity, high fiber diet, laxatives and follow up in 1 week or sooner as needed. BERONICA HIGHTOWER MD DR: RHONDA/ayden JOB#: [id number] / [id number]
== END 2017-01-03 14:44 | disposition home or self-care (01) | DRG 390 ==
LOC: ER 03:14 → 1 SOUTH 05:08 → OBSVTOIN 06:02
PROVIDERS: ADMIT Family Medicine; ATTEND Family Medicine
DX: K56.5 Intestinal adhesions [bands] with obstruction (postinfection) (principal); K21.9 Gastro-esophageal reflux disease without esophagitis; I10 Essential (primary) hypertension; F17.200 Nicotine dependence, unspecified, uncomplicated; E78.5 Hyperlipidemia, unspecified; E66.01 Morbid (severe) obesity due to excess calories; E11.65 Type 2 diabetes mellitus with hyperglycemia; K57.90 Diverticulosis of intestine, part unspecified, without perforation or abscess without bleeding; K58.9 Irritable bowel syndrome, unspecified; Z88.8 Allergy status to other drugs, medicaments and biological substances; Z90.49 Acquired absence of other specified parts of digestive tract; Z68.35 Body mass index [BMI] 35.0-35.9, adult
CPT/HCPCS: 36415; 74022; 74177; 80048; 80053; 81001; 82550; 82947; 83690; 84484; 85027; 93005; 96374; 96375; G0379; G0480; G0481; J2270; J2405; J3010; Q9967; S0028; 99285-25; J7030

== ENCOUNTER → 2017-02-23 | Outpatient (CLI) | payer MEDICARE, OTHER ==
[~2017-02-23] MED LIST changes: +ASPI-630 PO; -ASPI81TA2 PO; +DOCU-109 PO; -DOCU-27 PO; +LISI10TA2 PO
--- NOTE | 2017-02-23 15:11 | RAD ---
Indication: Flank pain and history of kidney stones. Time of exam 1506 hours. The bowel gas pattern is nonobstructed. No definite radiopaque urinary tract calculi are identified. No calculi along the course of the ureters is seen. Impression: No abnormality identified.
== END | disposition home or self-care (01) ==
LOC: DXRAD 14:59
PROVIDERS: ATTEND Urology
DX: R10.9 Unspecified abdominal pain (principal); Z87.442 Personal history of urinary calculi
CPT/HCPCS: 74000

== ENCOUNTER 2020-11-26 13:38 | Observation (INO) | payer MEDICARE, OTHER ==
[~2020-11-26] VITALS: Ht 172.7 cm; Wt 93.0 kg
[~2020-11-26 13:38] MED LIST changes: +CYAN-25 PO; -CYAN10005 PO; -LISI-338 PO; +LISI-517 PO; +LISI10TA16 PO; -LISI10TA2 PO
--- NOTE | 2020-11-26 14:07 | PHYS DOC ---
Past History Past Medical History: Diabetes, Hypertension, IBS Past Surgical History: Appendectomy, Other Alcohol Use: None Drug Use: None Adult General Chief Complaint Chief Complaint: FATIGUE HPI HPI Patient is a 80-year-old male who presents to the emergency department with complaints of blood-streaked stool for the past 2 to 3 days. Patient states he also has pain in his rectum. Patient reports that he has had hemorrhoids for many years. Patient denies chest pain, denies shortness of breath, denies chest palpitations, denies chest congestion. Patient denies rashes of his skin, denies fever chills, denies headaches, denies sore throat, denies fatigue, denies muscle or body aches. Patient denies any loss of taste or loss of smell. Patient denies any diarrhea, abdominal pain, nausea or vomiting. Patient denies constipation. Patient denies chest congestion or runny nose. Patient denies any other physical complaints or physical concerns. Patient's daughter is at bedside who provided additional HPI. For patient's daughter, patient of 47 years on 13 November, the patient's was buried today, the patient did not attend her . Patient's daughter states that the patient has been isolated in his home and she is worried that he is not eating or drinking. The patient believes the last time he got up from his chair to walk around was last Thursday. Patient states he is becoming disoriented specifically stating he cannot figure out how to do normal things around the house. Patient's daughter states that she noticed him becoming worse over the past 2 weeks. Patient has a history of hypertension, type 2 diabetes diet controlled. Review of Systems Review of Systems 14 body systems of review of systems have been reviewed. See HPI for pertinent positives and negative responses, otherwise all other systems are negative, nonpertinent or noncontributory. Current Medications Current Medications Patient reports she takes 25 mg metoprolol daily, vitamin B12 1000 mcg daily, vitamin D3 1000 units daily, alfuzosin 10 mg daily, 81 mg aspirin daily, pravastatin 40 mg daily, Zyrtec and Benadryl as needed for allergies, 5 mg lisinopril twice daily. Allergies Allergies Allergies Coded Allergies Type Severity Reaction Last Updated Verified simvastatin Allergy Severe cramps 11/09/15 Yes Physical Exam Physical Exam Constitutional: Well developed, well nourished, no acute distress, non-toxic appearance. [] HENT: Normocephalic, atraumatic, bilateral external ears normal, oropharynx moist, no oral exudates, nose normal. [] Eyes: PERRLA, EOMI, conjunctiva normal, no discharge. [] Neck: Normal range of motion, no tenderness, supple, no stridor. [] Cardiovascular:Heart rate regular rhythm, no murmur [] Lungs & Thorax: Bilateral breath sounds clear to auscultation [] Abdomen: Bowel sounds normal, soft, no tenderness, no masses, no pulsatile masses. [] Skin: Warm, dry, no erythema, no rash. [] Back: No tenderness, no CVA tenderness. [] Extremities: No tenderness, no cyanosis, no clubbing, ROM intact, no edema. [] Neurologic: Alert and oriented X 3, normal motor function, normal sensory function, no focal deficits noted. [] Psychologic: Affect normal, judgement normal, mood normal. [] Current Patient Data Lab Results Laboratory Tests Test 11/26/20 14:20 11/26/20 14:39 11/26/20 14:50 11/26/20 16:17 Stool Occult Blood Positive Troponin I Quantitative 0.056 ng/mL White Blood Count 15.5 x10^3/uL Red Blood Count 4.77 x10^6/uL Hemoglobin 15.8 g/dL Hematocrit 46.5 % Mean Corpuscular Volume 98 fL Mean Corpuscular Hemoglobin 33 pg Mean Corpuscular Hemoglobin Concent 34 g/dL Red Cell Distribution Width 12.5 % Platelet Count 523 x10^3/uL Neutrophils (%) (Auto) 85 % Lymphocytes (%) (Auto) 5 % Monocytes (%) (Auto) 10 % Eosinophils (%) (Auto) 0 % Basophils (%) (Auto) 0 % Neutrophils # (Auto) 13.1 x10^3uL Lymphocytes # (Auto) 0.7 x10^3/uL Monocytes # (Auto) 1.6 x10^3/uL Eosinophils # (Auto) 0.0 x10^3/uL Basophils # (Auto) 0.0 x10^3/uL Segmented Neutrophils % 88 % Lymphocytes % 5 % Monocytes % 6 % Basophils % 1 % Platelet Estimate Adequate Bedside Venous pH 7.38 Bedside Venous pCO2 47 mmHg Bedside Venous pO2 24 mmHg Venous Blood HCO3 28 mmol/L POC Venous O2 Saturation (Dale) 43 % Bedside FiO2 28 Sodium Level 126 mmol/L Potassium Level 5.1 mmol/L Chloride Level 91 mmol/L Carbon Dioxide Level 27 mmol/L Anion Gap 8 Blood Urea Nitrogen 35 mg/dL Creatinine 1.5 mg/dL Estimated GFR (Cockcroft-Gault) 45.0 BUN/Creatinine Ratio 23 Glucose Level 131 mg/dL Calcium Level 10.0 mg/dL Phosphorus Level 3.2 mg/dL Magnesium Level 1.9 mg/dL Total Bilirubin 1.1 mg/dL Aspartate Amino Transf (AST/SGOT) 64 U/L Alanine Aminotransferase (ALT/SGPT) 33 U/L Alkaline Phosphatase 81 U/L Creatine Kinase 1992 U/L Creatine Kinase MB (Mass) 22.7 ng/mL Creatine Kinase MB Relative Index 1.1 % Total Protein 6.9 g/dL Albumin 3.9 g/dL Albumin/Globulin Ratio 1.3 Acetone Level Neg Urine Collection Type Unknown Urine Color Janet Urine Clarity Clear Urine pH 5.5 Urine Specific Orange 1.020 Urine Protein Neg Urine Glucose (UA) Neg mg/dL Urine Ketones (Stick) Trace mg/dL Urine Blood Neg Urine Nitrite Neg Urine Bilirubin Neg Urine Urobilinogen Dipstick 0.2 mg/dL Urine Leukocyte Esterase Neg Urine RBC Occ /HPF Urine WBC Occ /HPF Urine Squamous Epithelial Cells Few /LPF Urine Bacteria 0 /HPF Test 11/26/20 16:58 11/26/20 21:45 Lactic Acid Level 2.2 mmol/L 2.3 mmol/L Current Medications Medications (Trade) Dose Ordered Sig/Edd Route PRN Reason Start Time Stop Time Status Last Admin Dose Admin Sodium Chloride 1,000 ml @ 75 mls/hr [id number] IV 11/26/20 18:30 11/27/20 18:29 11/26/20 18:15 Aspirin (Aspirin Chewable) 81 mg DAILY PO 11/27/20 09:00 Vitamin D (Vitamin D3) 2,000 unit DAILY PO 11/27/20 09:00 Cyanocobalamin (Vitamin B-12) 1,000 mcg DAILY PO 11/27/20 09:00 Lisinopril (Prinivil) 5 mg BID PO 11/26/20 21:00 11/26/20 20:46 Metoprolol Succinate (Toprol Xl) 25 mg DAILY PO 11/27/20 09:00 Tamsulosin HCl (Flomax) 0.4 mg DAILY PO 11/27/20 09:00 Non-Formulary Medication (Pravastatin Sodium ) 1 tab QHS PO 11/26/20 21:00 UNV Vitamin E (Vitamin E) 1,000 unit DAILYWBKFT PO 11/27/20 08:00 EKG EKG EKG performed at 1443 by house respiratory therapy staff, shows sinus tachycardia with first-degree AVB with a heart rate of 102 bpm, AK interval 0.270, QTc interval 0.397, no acute STEMI, no ACS, no acute ischemia appreciated, EKG interpreted by ED attending physician Dr. Correia Radiology/Procedures Radiology/Procedures PATIENT: AALIYAH AMBROCIO OACCOUNT: [id number] : 1940 LOCATION: ER AGE: 80 SEX: M EXAM STATUS: REG ER ORD. PHYSICIAN: REGINO GRIFFITH APRN REASON: CONFUSION PROCEDURE: CT HEAD WO CONTRAST Exam: CT head INDICATION: Confusion TECHNIQUE: Sequential axial images through the head were obtained without the administration of IV contrast. Comparisons: None FINDINGS: No focal parenchymal lesion or hemorrhage is identified. There is no midline shift or sulcal effacement. Mild patchy hypodensity in the periventricular No acute vascular territory infarction is identified. Howard-white distinction is preserved. The ventricular system is within normal limits without compression hydrocephalus. The basal cisterns are well maintained. The visualized portions of the paranasal sinuses and mastoid air cells are well- pneumatized. No acute fractures. IMPRESSION: No acute intracranial abnormality. Exposure: One or more of the following in the visualized dose reduction techniques were utilized for this examination: 1. Automated exposure control 2. Adjustment of the MA and/or KV according to patient size Use of iterative of reconstructive technique Electronically signed by: Africa Membreno MD (11/26/2020 3:13 PM) [facility] DICTATED AND SIGNED BY: AFRICA MEMBRENO MD DATE: 11/26/20 1510 CC: REGINO GRIFFITH APRN; MARY BETH CORREIA MD; ELDA SHIRLEY ~MTH0 0 PATIENT: AALIYAH AMBROCIO OACCOUNT: [id number] : 1940 LOCATION: ER AGE: 80 SEX: M EXAM STATUS: REG ER ORD. PHYSICIAN: REGINO GRIFFITH APRN REASON: CONFUSION WITH HYPOXIA PROCEDURE: CHEST PA & LATERAL EXAM: Chest, 2 views. HISTORY: Confusion. Hypoxia. COMPARISON: 01/02/2017 FINDINGS: 2 views of the chest are obtained. There is no infiltrate, pleural effusion or pneumothorax. The heart is stable in size. There is stable suspected right apical pleural-parenchymal scarring. IMPRESSION: No acute pulmonary finding. Electronically signed by: Shaylee Smith MD (11/26/2020 3:12 PM) [email or web address] DICTATED AND SIGNED BY: SHAYLEE SMITH MD DATE: 11/26/201510 CC: REGINO GRIFFITH APRN; MARY BETH CORREIA MD; ELDA SHIRLEY ~MTH0 0 Heart Score HEART Score for Chest Pain: HEART Score for Chest Pain Response (Comments) Value History Slighlty/Non-Suspicious 0 ECG Normal 0 Age > 65 2 Risk Factors No Risk Factors 0 Troponin >1-<3x Normal Limit 1 Total 3 Risk Factors: Risk Factors: DM, Current or recent (<one month) smoker, HTN, HLP, family history of CAD, obesity. Risk Scores: Risk Factors: DM, Current or recent (<one month) smoker, HTN, HLP, family history of CAD, obesity. Course & Med Decision Making Course & Med Decision Making Pertinent Labs and Imaging studies reviewed. (See chart for details) 80-year-old male, vital signs reviewed, presents emergency department with complaints of seeing blood in his stool related to his hemorrhoids. Patient's daughter reports the patient has been self isolated and mentally depressed since his on 13 November. Patient's daughter also states the patient has had some decreased mentation. Patient's physical examination is concerning for hypoxia, EMS reported a pulse ox of 77% on room air and placed him on 15 L nonrebreather for in route transfer. Patient was placed on 2 L upon arrival to the emergency department in which his O2 saturation remained at 96%. The patient was afebrile, related to the patient's family's complaint of mental status changes, a CT head, cardiac work-up, urine assay, serum labs were orde red. Patient CT head and chest x-ray were unremarkable per house radiologist of rotation. Patient's labs concerning for hyponatremia, elevated CK, elevated troponin I, leukocytosis. Discussed patient's case with [facility] physician Dr. Lagunas who agreed to assume patient care under full admission to the telemetry unit. Discussed admission to telemetry unit with patient who is amenable to this plan. Dr. Lagunas has assumed patient care at this time. Upon reviewing patient orders, it was noted that the patient's serial cardiac enzymes and daily basic metabolic panel were canceled. [facility] was advised that these orders need to be reinstated and initiated immediately as I did not cancel these orders. I called the patient's primary care nurse Kathy at [facility] whom stated she would reput those orders back into the system and get them initiated immediately. Dragon Disclaimer Dragon Disclaimer This electronic medical record was generated, in whole or in part, using a voice recognition dictation system. Departure Departure: Impression: Primary Impression: Hyponatremia Additional Impressions: Elevated troponin I level Elevated CK Leukocytosis Hypoxia Disposition: 09 ADMITTED INPT THIS HOSP Admitting Physician: Carson Lagunas (To telemetry unit) Condition: GUARDED Referrals: ELDA SHIRLEY (PCP) Problem Qualifiers Additional Impressions: Leukocytosis Leukocytosis type: unspecified Qualified Codes: D72.829 - Elevated white blood cell count, unspecified REGINO GRIFFITH APRN Nov 26, 2020 14:07
--- NOTE | 2020-11-26 15:14 | RAD ---
EXAM: Chest, 2 views. HISTORY: Confusion. Hypoxia. COMPARISON: 01/02/2017 FINDINGS: 2 views of the chest are obtained. There is no infiltrate, pleural effusion or pneumothorax . The heart is stable in size. There is stable suspected right apical pleural-parenchymal scarring. IMPRESSION: No acute pulmonary finding. Electronically signed by: Shaylee Sheriff MD (11/26/2020 3:12 PM) [email or web address]
--- NOTE | 2020-11-26 15:15 | RAD ---
Exam: CT head INDICATION: Confusion TECHNIQUE: Sequential axial images through the head were obtained without the administration of IV co ntrast. Comparisons: None FINDINGS: No focal parenchymal lesion or hemorrhage is identified. There is no midline shift or sulcal effaceme nt. Mild patchy hypodensity in the periventricular No acute vascular territory infarction is identified. Howard-white distinction is preserved. The ventricular system is within normal limits without compression hydrocephalus. The basal cisterns are well maintained. The visualized portions of the paranasal sinuses and mastoid air cells are well-pneumatized. No acute fractures. IMPRESSION: No acute intracranial abnormality. Exposure: One or more of the following in the visualized dose reduction techniques were utilized for this examination: 1. Automated exposure control 2. Adjustment of the MA and/or KV according to patient size Use of iterative of reconstructive technique Electronically signed by: Africa Bal MD (11/26/2020 3:13 PM) [facility]
[2020-11-26 15:31] LABS: BASO % 0 % (0-3); EOS % 0 % (0-3); HEMATOCRIT 46.5 % (39.0-53.0); HEMOGLOBIN 15.8 g/dL (13.0-17.5); LYMPH # 0.7 x10^3/uL (1.0-4.8); LYMPH % 5 % (24-48); MEAN CORPUSCULAR HEMOGLOBIN 33 pg (25-35); MEAN CORPUSCULAR HGB CONC 34 g/dL (31-37); MEAN CORPUSCULAR VOLUME 98 fL (79-100); MONO # 1.6 x10^3/uL (0.0-1.1); MONO % 10 % (0-9); NEUT # 13.1 x10^3uL (1.8-7.7); NEUT % 85 % (31-73); PLATELET COUNT 523 x10^3/uL (140-400); RED BLOOD COUNT 4.77 x10^6/uL (4.30-5.70); RED CELL DISTRIBUTION WIDTH 12.5 % (11.5-14.5); WHITE BLOOD COUNT 15.5 x10^3/uL (4.0-11.0)
[2020-11-26 15:42] LABS: FECAL OB PT POSITIVE (NEG)
[2020-11-26 15:54] LABS: CREATININE 1.5 mg/dL (0.7-1.3); POTASSIUM 5.1 mmol/L (3.5-5.1)
[2020-11-26 16:24] LABS: ALBUMIN 3.9 g/dL (3.4-5.0); ALBUMIN/GLOBULIN RATIO 1.3 (1.0-1.7); MAGNESIUM 1.9 mg/dL (1.8-2.4); PHOSPHORUS 3.2 mg/dL (2.6-4.7); TOTAL BILIRUBIN 1.1 mg/dL (0.2-1.0); TOTAL PROTEIN 6.9 g/dL (6.4-8.2)
[2020-11-26 17:18] LABS: BACTERIA,URINE 0 /HPF (0-FEW); BILIRUBIN,URINE NEG (NEG); CLARITY,URINE CLEAR; COLOR,URINE AMBER; GLUCOSE,URINE NEG (NEG); NITRITE,URINE NEG (NEG); RBC,URINE OCC /HPF (0-2); UROBILINOGEN,URINE 0.2 mg/dL (0.2 mg/dL); WBC,URINE OCC /HPF (0-4)
[2020-11-26 17:19] LABS: SQUAMOUS EPITHELIAL CELL,UR FEW /LPF
[2020-11-26] MEDS: IV NORMAL SALINE 1,000ML 1,000 ML IV SCH (18:15)
--- NOTE | 2020-11-26 18:56 | EKG ---
[facility] ED [facility] [address] [place] [id number] Test Date: 2020-11-26 Test Time: 14:43:51 Pat Name: AALIYAH AMBROCIO Department: Room: [place] [address] Gender: M Clinical Technologist: KRISTOPHER : 1940 Requested By: MARY BETH CORREIA Order Number: [id number] Reading MD: Estevan Robles Measurements Intervals [place] Rate: 102 P: 27 LA: 270 QRS: -11 QRSD: 82 T: 24 QT: 302 QTc: 397 Interpretive Statements SINUS TACHYCARDIA PROLONGED LA INTERVAL LEFTWARD AXIS QRS(T) CONTOUR ABNORMALITY CONSIDER INFERIOR MYOCARDIAL DAMAGE ABNORMAL ECG Electronically Signed On 11-27-2020 9:22:40 [employer] by Estevan Robles
[2020-11-26 19:05] VITALS: BP 139/70
--- NOTE | 2020-11-26 19:05 | NUR ---
Admission Note: Pt transported via EMS from ED to ICU room 5, pt transferred from cart to bed w/two person assist, VSS (pt on oxygen at 2 liters NC at this time), pt able to stand w/standby assist (cane provided as he forgot his at home), pt voiding clear yellow urine, pt able to answer admission questions and provide medication history, physician called to get home medications ordered, will continued to monitor.
[2020-11-26] MEDS ORDERED: ASPI-630 PO (19:37)
[2020-11-26] MEDS ORDERED: TAMS0.4C97 PO (19:37)
[2020-11-26] MEDS ORDERED: VITA100022 PO (19:37)
[2020-11-26] MEDS: LISINOPRIL 5 MG TABLET. PO SCH (20:46)
[2020-11-26] MEDS ORDERED: NON FORMULARY ITEM (Pravastatin Sodium 1 TAB) PO SCH (21:00)
[2020-11-26 22:23] LABS: % BASOS 1 % (0-3); % LYMPHS 5 % (24-48); % MONOS 6 % (0-10); % SEGS 88 % (35-66); PLT ESTIMATE ADEQUATE (ADEQUATE)
[2020-11-26 22:37] VITALS: BP 97/39
[2020-11-27 02:28] LABS: CALCIUM 9.4 mg/dL (8.5-10.1); CREATININE 1.2 mg/dL (0.7-1.3); GFR 58.3; POTASSIUM 4.1 mmol/L (3.5-5.1)
[2020-11-27] MEDS: IV NORMAL SALINE 1,000ML 1,000 ML IV SCH (05:00)
[2020-11-27 07:00] VITALS: BP 108/87
[2020-11-27] MEDS ORDERED: VITAMIN E 1,000 UNIT CAPSULE. PO SCH (08:00)
[2020-11-27] MEDS ORDERED: CYANOCOBALAMIN (VITAMIN B-12) 1,000 MCG TABLET. PO SCH (09:00)
[2020-11-27] MEDS ORDERED: ASPIRIN CHEWABLE 81 MG TABLET. PO SCH (09:00)
[2020-11-27] MEDS ORDERED: METOPROLOL SUCC 24HR ER 25 MG TAB.ER.24H. PO SCH (09:00)
[2020-11-27] MEDS: LISINOPRIL 5 MG TABLET. PO SCH (09:00)
[2020-11-27] MEDS ORDERED: TAMSULOSIN 0.4 MG CAP.ER.24H. PO SCH (09:00)
[2020-11-27] MEDS ORDERED: CHOLECALCIFEROL (VITAMIN D3) 1,000 UNIT TABLET PO SCH (09:00)
[2020-11-27 09:52] LABS: HEMATOCRIT 43.9 % (39.0-53.0); HEMOGLOBIN 14.9 g/dL (13.0-17.5); RED BLOOD COUNT 4.47 x10^6/uL (4.30-5.70); RED CELL DISTRIBUTION WIDTH 12.6 % (11.5-14.5); WHITE BLOOD COUNT 8.7 x10^3/uL (4.0-11.0)
[2020-11-27 10:09] LABS: ALBUMIN 3.4 g/dL (3.4-5.0); CALCIUM 9.2 mg/dL (8.5-10.1); CREATININE 1.1 mg/dL (0.7-1.3); GFR 64.4; POTASSIUM 4.5 mmol/L (3.5-5.1); TOTAL BILIRUBIN 1.1 mg/dL (0.2-1.0); TOTAL PROTEIN 6.8 g/dL (6.4-8.2)
--- NOTE | 2020-11-27 10:52 | DS ---
DATE OF DISCHARGE: 11/26/2020 ATTENDING PHYSICIAN: Dr. Jauregui. FINAL DISCHARGE DIAGNOSES: 1. Asymptomatic hyponatremia. 2. Essential hypertension, normotensive. 3. Grieving process with recent loss of his . 4. Mild confusion, resolved. 5. Hyperlipidemia. HISTORY AND PHYSICAL: This very pleasant, active 80-year-old gentleman just lost his 2 years ago. He has been in the grieving process. The family is concerned. He was not focused and had been eating much. They brought him in for evaluation. He had a serum sodium 126 mEq per liter. He had no symptoms. Slight elevation of troponin of 0.07. The patient had a nonischemic cardiac evaluation and a stress test just in 09/2020. He was admitted for IV hydration, followup and observation. PHYSICAL EXAMINATION: Please see the dictated note. PERTINENT LABORATORY AND X-RAY STUDIES: Admission hemoglobin was 15.8 gm/dL, white count 15,000 and repeated next day was down to 8700. Chemistry panel on admission, sodium 126 mEq, repeated the next day with hydration still was 126. His creatinine is normal at 1.1. Transaminases normal. Cardiac enzymes second one was 0.06 and trending downwards. Once again, he had no symptoms. COURSE IN THE HOSPITAL: The patient was given saline. We monitored him. He had no arrhythmias. His oxygen saturations were quite adequate 93% on room air. He felt well. Diet was advanced. Home meds continued. On the next day, I examined him. His lungs were clear. Cardiovascular exam showed regular heart tones. He was afebrile. His speech was entirely fluent. Affect appropriate. He wanted to go home. I felt this is reasonable. I discussed the case with his PCP, Dr. Field. She will see him in the office for followup visit this coming Thursday. Therefore, on the next hospital day, the patient was discharged from our hospital. No changes in meds. He will continue his aspirin, vitamin D3, lisinopril, metoprolol, pravastatin, Flomax and vitamin E. He will call Dr. Field for followup visit and recheck on Thursday. In addition, he is slated to get his first COVID vaccine at the [facility] later this week. The patient was then discharged from our hospital in stable condition with explicit instructions and followup care. SARAH JAUREGUI MD DR: TA/ayden JOB#: [id number] / [id number] Ariadne Santa
[2020-11-27 11:00] VITALS: BP 106/84
--- NOTE | 2020-11-27 11:47 | HP ---
ADMIT DATE: 11/26/2020 CHIEF COMPLAINT: Confusion following the loss of his . HISTORY OF PRESENT ILLNESS: The patient is a very pleasant, healthy, active 80-year-old gentleman who unfortunately lost his the last week of October. Since that time, he has been isolated. He has several family including 4 daughters and 2 sons in town. For the last week, he has been isolated in house and not eating, inability to focus. He did not attend the 's . He had some disorientation. He was admitted through the Emergency Department. There was some bright red blood per rectum, but it was due to hemorrhoids. He did have a slight elevation of cardiac enzyme, troponin; however, he was asymptomatic. This may be stress demand. He had a nonischemic stress test done as an outpatient in 09/2020. By the time I saw the patient, he was quite alert and oriented. Vital signs were stable. He had a slightly diminished sodium of 126 mEq, related to SOHA inhibitor. He had some IV hydration and a followup chemistry will be drawn in the morning. PAST MEDICAL HISTORY: Significant for diet-controlled diabetes, essential hypertension, irritable bowel syndrome. PAST SURGICAL HISTORY: Appendectomy. DRUG ALLERGIES: SIMVASTATIN. SOCIAL HISTORY: He is a nonsmoker, nondrinker. CURRENT MEDICINES: Include lisinopril 5 mg b.i.d., Lopressor, aspirin 81 mg daily, vitamin D3, pravastatin 40 mg daily, Flomax 0.4 mg daily and vitamin ____. FAMILY HISTORY: Noncontributory. REVIEW OF SYSTEMS: This is a gentleman who is a retired [employer]. His of 47 years just a couple of weeks ago. According to the family, he has been somewhat isolative, a lot on his mind, not focused, unable to complete tasks. They were concerned about underlying dementia. [facility] He was slated to get his first COVID vaccine shot this coming Thursday. No other exposures. All other systems reviewed and determined to be negative. PHYSICAL EXAMINATION: GENERAL: When I saw him, this is a delightful, pleasant gentleman who appears younger than his stated age. INITIAL VITAL SIGNS: Showed a blood pressure of 136/70, pulse was 80 and regular, temperature 97.8 degrees Fahrenheit, and oxygen saturation 95% on room air. HEENT: Head is without trauma. Pupils are reactive. Sclerae nonicteric. Oropharynx clear. NECK: Supple, no bruits. LUNGS: Otherwise, clear to auscultation. CARDIOVASCULAR: Showed regular heart tones. No gallops. ABDOMEN: Soft, nontender, no organomegaly. Bowel sounds were normoactive. EXTREMITIES: Without edema. NEUROLOGIC: Focally intact. Speech is fluent. Wharf Hand intact. Gait normal. No ataxia. Thought process is clear, concise without any significant deficits. PERTINENT LABORATORY STUDIES: The hemoglobin is 15.8 g/dL; white count initially 15,500, repeated next day was 8700. Electrolytes: Sodium 126 mEq, potassium 4.1, creatinine is 1.2 mg percent. The first troponin was 0.07, slightly above the limits ____. EKG is nondiagnostic. There is no arrhythmia. The obligatory CT of the head showed no strokes or bleeds. No acute intracranial process identified. ASSESSMENT: 1. An 80-year-old gentleman who is undergoing a grieving process upon the recent loss of his . He had some underlying confusion, which has since resolved. 2. Asymptomatic hyponatremia due to SOHA inhibitors. 3. Slightly abnormal elevation of troponin due to stress demand ischemia. There are no symptoms at this time. The patient had a negative cardiac workup and stress test just 2 months ago. 4. Essential hypertension, currently normotensive. 5. Hyperlipidemia. PLAN: 1. Observation status. 2. Serial enzymes. 3. We will continue his home meds. 4. Gentle IV hydration with saline. 5. Follow up chemistries in the morning. SARAH JUAREGUI MD DR: TA/ayden JOB#: [id number] / [id number] Ariadne Santa
--- NOTE | 2020-11-27 13:54 | NUR ---
Patient stated he was feeling better this am and wanted to go home. Patients VS are stable and WNL. Patient is alert and oriented X's 4. Dr. Lagunas assessed patient and determined the patient was able to be discharged. Patient was discharged to home. Patient discharge information was reviewed with patient, patient verbalized understanding. All peripheral IV lines were removed. Patient was able to dress himself independently and called for a ride home. Patient left the unit via wheelchair escorted by this RN to the front door where he was met by his daughter who transported him home.
== END 2020-11-27 11:40 | disposition home or self-care (01) ==
LOC: ER 13:38 → INTOOBSV 17:00 → ICU 17:00 → ER 18:44
PROVIDERS: ADMIT Hospitalist; ATTEND Hospitalist
DX: E87.1 Hypo-osmolality and hyponatremia (principal); I10 Essential (primary) hypertension; R41.0 Disorientation, unspecified; E78.5 Hyperlipidemia, unspecified; D72.829 Elevated white blood cell count, unspecified; R09.02 Hypoxemia; R77.8 Other specified abnormalities of plasma proteins; E11.9 Type 2 diabetes mellitus without complications; F43.21 Adjustment disorder with depressed mood; K58.9 Irritable bowel syndrome, unspecified; K64.9 Unspecified hemorrhoids; Z63.4 Disappearance and death of family member; Z90.49 Acquired absence of other specified parts of digestive tract; Z79.82 Long term (current) use of aspirin; Z79.899 Other long term (current) drug therapy
CPT/HCPCS: 36415; 70450; 71046; 80048; 80053; 81001; 82010; 82274; 82553; 82803; 83605; 83735; 84100; 84484; 85007; 85025; 85027; 87040; 93005; 96360; 96361; 99285; G0378; J7030; G0379

== ENCOUNTER → 2021-07-19 | Outpatient (CLI) | payer MEDICARE, OTHER ==
[~2021-07-19] MED LIST changes: +TAMS0.4C97 PO; +VITA100022 PO
--- NOTE | 2021-07-20 00:08 | RAD ---
EXAM: PA and Lateral Views of the Chest DATE: 07/19/2021 1:50 PM INDICATION: Reason: ABNORMAL LUNG SOUND. / Spl. Instructions: / History: COMPARISON: 11/26/2020 FINDINGS: The heart is not enlarged. Aorta is tortuous with atherosclerotic calcifications. Mediastinal and hilar contours are normal. No focal parenchymal airspace opacity. No pleural effusion or pneumothorax. IMPRESSION: 1. No radiographic evidence for acute cardiopulmonary process. Electronically signed by: Justin Vaughn MD (07/20/2021 12:06 AM) [facility]
== END ==
LOC: RAD 13:38
PROVIDERS: ATTEND Nurse Practitioner
DX: R06.09 Other forms of dyspnea (principal)
CPT/HCPCS: 71046

== ENCOUNTER 2021-09-21 19:38 | Emergency (ER) | payer MEDICARE, OTHER ==
[~2021-09-21] VITALS: Ht 167.6 cm; Wt 110.0 kg
[~2021-09-21 19:38] MED LIST changes: -LISI-517 PO; +LISI5TAB15 PO
--- NOTE | 2021-09-21 19:51 | PHYS DOC ---
Past History Past Medical History: Heart Disease, Hypertension, Prostatitis Past Surgical History: Appendectomy, Other Alcohol Use: Occasionally Drug Use: None Adult General HPI HPI Patient is an 81-year-old male with a past medical history significant for hypertension and hypercholesterolemia as well as recent dysphagia and odynophagia with a EGD done yesterday for biopsies also noting a mass in the esophagus who presents with a chief complaint of epigastric pain and abdominal distention, 8 out of 10, dull and achy in nature associated with nonbloody nonbilious emesis. Denies any other recent traumas, illnesses, fevers, chest pain, shortness of breath, dysuria, hematuria, blood in the stool or diarrhea. Review of Systems Review of Systems Review of systems otherwise unremarkable except noted in HPI Allergies Allergies Allergies Coded Allergies Type Severity Reaction Last Updated Verified simvastatin Allergy Severe cramps 11/09/15 Yes Physical Exam Physical Exam Constitutional: Well developed, well nourished, no acute distress, non-toxic appearance. [] HENT: Normocephalic, atraumatic, bilateral external ears normal, oropharynx moist, no oral exudates, nose normal. [] Eyes: conjunctiva normal, no discharge. [] Neck: Normal range of motion, no tenderness, supple, no stridor. [] Cardiovascular:Heart rate regular rhythm, no murmur [] Lungs & Thorax: Bilateral breath sounds clear to auscultation [] Abdomen: Abdomen distended, and pain on palpation throughout with worst in the epigastrium, mild rebound but no guarding Skin: Warm, dry, no erythema, no rash. [] Back: no CVA tenderness. [] Extremities: No tenderness, no cyanosis, no clubbing, ROM intact, no edema. [] Neurologic: Alert and oriented X 3, no focal deficits noted. [] Psychologic: Affect normal, judgement normal, mood normal. [] EKG EKG [] Radiology/Procedures Radiology/Procedures [] FINDINGS: There is abnormal soft tissue thickening at the left paratracheal region inv olving the anterior proximal esophagus and also the left lobe of the thyroid gland measuring approximately 2.8 x 2.8 cm in transverse dimension. No enlarged mediastinal lymph nodes are identified. Heart size is normal. No pericardial effusion. Thoracic aorta has normal course and caliber. Pulmonary artery is not enlarged. Airways are patent. No consolidation or pneumothorax. No suspicious lung nodules. Mild centrilobular emphysematous change noted at the upper lobes. No pleural effusion or thickening. Liver, spleen, pancreas, gallbladder and adrenals are unremarkable. No perinephric inflammation or hydronephrosis. No renal or ureteral calculi are identified. Bladder is partially distended and not well evaluated. Prostate is nonenlarged. Few scattered diverticula are noted within the sigmoid colon without evidence of acute diverticulitis. Appendix is nonidentified. There is mild dilatation of proximal small bowel loops with gradual transition to more normal size caliber. No free intra-abdominal air or fluid. No obstruction. Abdominal aorta has normal course and caliber. Abdominal vasculature is patent. No enlarged intra-abdominal lymph nodes are identified. No suspicious osseous lesions or acute fractures. IMPRESSION: 1. Massive the upper anterior esophagus as described above measuring approximately 2.8 x 2.8 cm. 2. Mildly dilated loops of small bowel proximally. A distinct transition point is not identified. Findings could relate to ileus. Developing or early obstruction is difficult to exclude. Continued radiographic follow-up is recommended. Heart Score C/O Chest Pain: No Risk Factors: Risk Factors: DM, Current or recent (<one month) smoker, HTN, HLP, family history of CAD, obesity. Risk Scores: Risk Factors: DM, Current or recent (<one month) smoker, HTN, HLP, family history of CAD, obesity. Course & Med Decision Making Course & Med Decision Making Patient is an 81-year-old male status post EGD yesterday for biopsies, after finding a mass who presents with abdominal pain, distention nausea and vomiting Vital signs not concerning at this time. Physical exam noted above. Patient placed on the monitor with IV access established. Given pain and nausea medicine Laboratory analysis notable for leukocytosis. 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 Continue patient on n.p.o. status, given fluid, more pain and nausea medicine and given antibiotics to cover for intra-abdominal infection. Discussed all findings with family and recommended admission to the hospital. Patient family grateful, verbalized understanding and agreed with plan of admission and transfer to [facility]. [] Concepcion Disclaimer Dragon Disclaimer This electronic medical record was generated, in whole or in part, using a voice recognition dictation system. Departure Departure: Impression: Primary Impression: Abdominal pain Additional Impressions: Leukocytosis Small bowel obstruction Disposition: 02 SHORT [facility] Admitting Physician: Other Condition: STABLE Referrals: ELDA SHIRLEY (PCP) Problem Qualifiers TRAVIS SANCHES MD Sep 21, 2021 19:51
[2021-09-21] MEDS ORDERED: HYDROmorphone PF 2 MG/ML VIAL IVP ONE ×2 (20:15→22:15)
[2021-09-21] MEDS ORDERED: IV RINGERS SOLUTION,LACTATED 1,000 ML IV ONE ×2 (20:15→23:00)
[2021-09-21] MEDS ORDERED: IOHEXOL 300 MG/ML 75 ML VIAL. IV ONE (20:15)
[2021-09-21] MEDS ORDERED: ONDANSETRON PF 4 MG/2 ML VIAL. IVP ONE ×2 (20:15→22:15)
[2021-09-21] MEDS ORDERED: CONTRAST GIVEN. MC PRN (20:30)
[2021-09-21 20:57] LABS: BASO # 0.1 x10^3/uL (0.0-0.2); BASO % 1 % (0-3); EOS # 0.1 x10^3/uL (0.0-0.7); EOS % 0 % (0-3); HEMATOCRIT 46.3 % (39.0-53.0); HEMOGLOBIN 15.9 g/dL (13.0-17.5); LYMPH # 1.6 x10^3/uL (1.0-4.8); LYMPH % 12 % (24-48); MEAN CORPUSCULAR HEMOGLOBIN 34 pg (25-35); MEAN CORPUSCULAR HGB CONC 34 g/dL (31-37); MEAN CORPUSCULAR VOLUME 100 fL (79-100); MONO # 1.2 x10^3/uL (0.0-1.1); MONO % 9 % (0-9); NEUT # 10.2 x10^3uL (1.8-7.7); NEUT % 77 % (31-73); PLATELET COUNT 345 x10^3/uL (140-400); RED BLOOD COUNT 4.65 x10^6/uL (4.30-5.70); RED CELL DISTRIBUTION WIDTH 12.6 % (11.5-14.5); WHITE BLOOD COUNT 13.2 x10^3/uL (4.0-11.0)
[2021-09-21 21:08] LABS: CALCIUM 10.2 mg/dL (8.5-10.1); CREATININE 1.1 mg/dL (0.7-1.3); GFR 64.2; POTASSIUM 4.9 mmol/L (3.5-5.1)
--- NOTE | 2021-09-21 21:10 | EKG ---
[address] [address] Test Date: 2021-09-21 Test Time: 20:11:48 Pat Name: AALIYAH AMBROCIO Department: Room: Gender: M [employer] Installer: : [id number] Requested By: TRAVIS SANCHES Order Number: [id number] Reading MD: Thong Nuno MD Measurements Intervals [place] Rate: 85 P: -68 AK: 226 QRS: -51 QRSD: 86 T: 26 QT: 362 QTc: 436 Interpretive Statements SINUS RHYTHM PROLONGED AK INTERVAL ABNORMAL LEFT AXIS DEVIATION QRS(T) CONTOUR ABNORMALITY CONSISTENT WITH INFERIOR INFARCT PROBABLY OLD ABNORMAL ECG Electronically Signed On 09-22-2021 20:25:54 [employer] MACHINE OPERATOR by Thong Nuno MD
[2021-09-21 21:14] LABS: ALBUMIN/GLOBULIN RATIO 1.3 (1.0-1.7); TOTAL BILIRUBIN 0.7 mg/dL (0.2-1.0); TOTAL PROTEIN 7.1 g/dL (6.4-8.2)
--- NOTE | 2021-09-21 21:30 | RAD ---
Exam: CT of chest, abdomen and pelvis with contrast INDICATION: Epigastric pain, history of EGD yesterday TECHNIQUE: Sequential axial images through the chest, abdomen and pelvis obtained following the admin istration of 75 mL of Isovue-370 IV contrast. Sagittal and coronal reformatted images were reconstruc giancarlo from the axial data and reviewed. Exposure: One or more of the following in the visualized dose reduction techniques were utilized for this examination: 1. Automated exposure control 2. Adjustment of the MA and/or KV according to patient size 3. Use of iterative of reconstructive technique Comparisons: None FINDINGS: There is abnormal soft tissue thickening at the left paratracheal region involving the anterior proxi mal esophagus and also the left lobe of the thyroid gland measuring approximately 2.8 x 2.8 cm in tra nsverse dimension. No enlarged mediastinal lymph nodes are identified. Heart size is normal. No pericardial effusion. Thoracic aorta has normal course and caliber. Pulmonar y artery is not enlarged. Airways are patent. No consolidation or pneumothorax. No suspicious lung nodules. Mild centrilobular emphysematous change noted at the upper lobes. No pleural effusion or thickening. Liver, spleen, pancreas, gallbladder and adrenals are unremarkable. No perinephric inflammation or hydronephrosis. No renal or ureteral calculi are identified. Bladder is partially distended and not well evaluated. Prostate is nonenlarged. Few scattered diverticula are noted within the sigmoid colon without evidence of acute diverticulitis . Appendix is nonidentified. There is mild dilatation of proximal small bowel loops with gradual marshall sition to more normal size caliber. No free intra-abdominal air or fluid. No obstruction. Abdominal aorta has normal course and caliber. Abdominal vasculature is patent. No enlarged intra-abdominal lymph nodes are identified. No suspicious osseous lesions or acute fractures. IMPRESSION: 1. Massive the upper anterior esophagus as described above measuring approximately 2.8 x 2.8 cm. 2. Mildly dilated loops of small bowel proximally. A distinct transition point is not identified. Fi ndings could relate to ileus. Developing or early obstruction is difficult to exclude. Continued radi ographic follow-up is recommended. Electronically signed by: Africa Bal MD (09/21/2021 9:28 PM) [facility]
[2021-09-21] MEDS ORDERED: cefTRIAXone SODIUM 1 GM VIAL ONE (22:27)
[2021-09-21] MEDS ORDERED: IV NORMAL SALINE 50ML 50 ML ONE (22:27)
[2021-09-21] MEDS ORDERED: HYDROmorphone PF 1 MG/ML DISP.SYRIN IVP ONE (23:30)
[2021-09-22 00:40] VITALS: BP 108/52
[2021-09-22] MEDS ORDERED: HYDROmorphone PF 2 MG/ML VIAL IVP ONE (01:30)
[2021-09-22] MEDS ORDERED: ONDANSETRON PF 4 MG/2 ML VIAL. IVP ONE (01:30)
== END 2021-09-22 01:07 | disposition short-term general hospital (02) ==
LOC: ER 19:38
DX: D72.829 Elevated white blood cell count, unspecified (principal); K56.609 Unspecified intestinal obstruction, unspecified as to partial versus complete obstruction; I11.9 Hypertensive heart disease without heart failure; I10 Essential (primary) hypertension; E78.00 Pure hypercholesterolemia, unspecified; Z20.822 Contact with and (suspected) exposure to COVID-19; Z90.89 Acquired absence of other organs; Z88.8 Allergy status to other drugs, medicaments and biological substances
CPT/HCPCS: 36415; 71260; 74177; 80053; 83605; 83690; 84484; 85025; 86850; 86900; 86901; 87426; 93005; 96361; 96365; 96375; 96376; 99285; C9803; J0696; J1170; J2405; J7120; Q9967; U0003